=== PATIENT | female | born 1970 | race Caucasian/White ===

== ENCOUNTER → 2020-05-04 | Outpatient (CLI) | payer BC, OTHER ==
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
== END | disposition home or self-care (01) ==
LOC: RADMRIMAIN 14:59 → MERGE 15:15
PROVIDERS: ATTEND Otolaryngology
DX: H91.92 Unspecified hearing loss, left ear (principal)
CPT/HCPCS: 70553; A9585

== ENCOUNTER → 2023-01-12 | Outpatient (CLI) | payer BC ==
--- NOTE | 2023-01-12 11:50 | CA ---
Stress Echo Report Linda Bedoya Age: 52 Gender: F : 1970 Exam Date: 01/12/2023 09:40 Exam Location: [facility] Ht (in): 60 Wt (lb): 155 Ordering Physician: Colin Graham MD Referring Physician: Katherin Coles [facility] Breakfast Attendant: Guerline Wadsworth RDCS Technologist Procedure CPT: Indication: R94.31 ABNORMAL ELECTROCARDIOGRAM ICD-9 Codes: Rhythm: Patient History: Cardiac Medications: cymbalta, ibuprofen, alegra Medications in past 24 hours: Contrast: Stress Results Protocol: Jose Total dose(mL): Exercise Duration (min:sec): 7:[address] Depression (mm): Angina Score: Maza Score: METS: 9.5 Resting HR: 72 Resting BP: 139 / 91 Peak HR: 172 Peak BP: 210 / 78 Max Predicted HR: 170 101 % Max Predicted HR Target HR: 145 Double Product: [id number] Stress Summary: The patient's target heart rate was achieved BP Response: Reason for Termination: Reached target heart rate or work-load Cardiac Symptoms: ECG Analysis Resting ECG: Stress ECG: Arrhythmia: Echo Analysis Resting Echo: Peak Echo Analysis: MEASUREMENTS (Male/Female) Normal Values CONCLUSIONS Baseline EKG revealed a normal sinus rhythm without significant ST-T changes minor nonspecific T-wave flattening was noted. Patient walked for 7 minutes 51 seconds and achieved a maximum heart rate of 162 bpm which is more than 85% of predicted maximal. She did not have any angina there was no arrhythmia. Resting blood pressure was 139/90 peak blood pressure was 210/78. By EKG criteria this is a negative stress test with fair exercise capacity and hypertensive response to exercise Baseline echo images revealed normal wall motion wall thickening of all segments At peak exercise there was good augmentation of the front wall motion wall thickening of all segments are distant but there is no evidence of any stress-induced ischemia on this study. Fair exercise capacity with a negative stress test by EKG criteria Normal stress echocardiogram without evidence of ischemia. Dr. Abran Garcia MD (Electronically Signed) Final Date: 12 January 2023 11:49
== END | disposition home or self-care (01) ==
LOC: RADNMMAIN 09:07
PROVIDERS: ATTEND Family Medicine
DX: R94.31 Abnormal electrocardiogram [ECG] [EKG] (principal)
CPT/HCPCS: 93351